=== PATIENT | male | born 2005 | race Caucasian/White ===

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

== ENCOUNTER 2023-01-06 12:33 | Emergency (ER) | payer BC, OTHER, SELFPAY ==
[2023-01-06] MEDS ORDERED: Ibuprofen 600 MG TAB ONE (14:06)
[2023-01-06] MEDS ORDERED: Dexamethasone 10 MG/ML VIAL ONE (14:06)
[2023-01-06] MEDS ORDERED: Dexamethasone 4 MG TAB ONE (14:07)
== END 2023-01-06 15:20 | disposition home or self-care (01) ==
LOC: MADERS 12:33
DX: M54.12 Radiculopathy, cervical region (principal)
CPT/HCPCS: 72050; J1100; J8540